=== PATIENT | female | born 1945 ===

== ENCOUNTER 2017-07-20 17:08 | Emergency (ER) | payer OTHER ==
[2017-07-20 17:16] VITALS: PULSE 78; RESP 20
[2017-07-20] MEDS ORDERED: Sodium Chloride 0.9% 500 ML IV ONE ×2 (17:36→17:50)
[2017-07-20] MEDS ORDERED: (Novolin R) Insulin Human Regular 100 units/ml vial IV STA (17:36)
[2017-07-20 17:56] LABS: BASO # 0.1 K/uL (0.0-0.2); BASO % 0.8 % (0.0-2.0); EOS # 0.1 K/uL (0.0-0.7); EOS % 0.7 % (0.0-4.0); HEMOGLOBIN 13.8 g/dL (11.0-16.0); LYMPH # 2.9 K/uL (1.0-4.3); LYMPH % 33.8 % (20.0-40.0); MEAN CELL VOLUME 85.6 fL (81.0-99.0); MEAN CORPUSCULAR HEMOGLOBIN 28.6 pg (27.0-31.0); MEAN CORPUSCULAR HGB CONC 33.4 g/dL (33.0-37.0); MEAN PLATELET VOLUME 10.5 fL (7.2-11.7); MONO # 0.5 K/uL (0.0-0.8); MONO % 5.9 % (0.0-10.0); NEUT # 5.1 K/uL (1.8-7.0); NEUT % 58.8 % (50.0-75.0); RBC 4.84 Mil/uL (3.80-5.20); RED CELL DISTRIBUTION WIDTH 14.9 % (11.5-14.5); WHITE BLOOD COUNT 8.7 K/uL (4.8-10.8)
[2017-07-20] MEDS ORDERED: (Novolin R) Insulin Human Regular 100 units/ml vial IV ONE (17:56)
[2017-07-20 17:58] LABS: SQUAMOUS EPITHIAL 1 /hpf (0-5); URINE BILIRUBIN NEGATIVE (NEGATIVE); URINE BLOOD NEGATIVE (NEGATIVE); URINE CLARITY Clear (Clear); URINE COLOR Straw (YELLOW); URINE GLUCOSE (UA) 3+ mg/dL (Normal); URINE LEUKOCYTE ESTERASE NEG Leu/uL (Negative); URINE PROTEIN NEGATIVE (NEGATIVE); URINE UROBILINOGEN NORMAL mg/dL (0.2-1.0)
[2017-07-20] MEDS ORDERED: (Novolin R) Insulin Human Regular 100 units/ml vial ONE (18:03)
[2017-07-20 18:17] LABS: ALB/GLOB RATIO 1.1 (1.0-2.1); ALBUMIN 3.6 g/dL (3.5-5.0); CALCIUM 9.2 mg/dl (8.6-10.4)
--- NOTE | 2017-07-20 18:17 | RAD ---
PROCEDURE: CHEST RADIOGRAPH, 1 VIEW HISTORY: Diabetic COMPARISON: None available. FINDINGS: LUNGS: Clear. PLEURA: No pneumothorax or pleural fluid seen. CARDIOVASCULAR: No radiographic findings to suggest acute or significant cardiovascular disease. OSSEOUS STRUCTURES: No significant abnormalities. VISUALIZED UPPER ABDOMEN: Normal. OTHER FINDINGS: None. IMPRESSION: No active disease. Concordant results with the preliminary interpretation rendered by the emergency department physician procedure.
[2017-07-20 18:18] LABS: TROPONIN I 0.017 ng/mL (0.00-0.120)
--- NOTE | 2017-07-20 18:39 | C.PDOC ---
History Of Present Illness 72 y/o female w/ PMhx of cardiac stents and diabetes, presents to the ER complaining of elevated blood sugar levels yesterday. Patient states that she used her daughter's fingerstick machine and her fingerstick was over 400 yesterday. Patient has been taking care of herself with highly doubtful medicine complication. Denies having polydipsia.Of note, patient arrived from the 3 days ago in order to live permanently with her daughter. Time Seen by Provider: 07/20/17 17:26 Chief Complaint (Nursing): Headache History Per: Patient History/Exam Limitations: no limitations Onset/Duration Of Symptoms: Days Current Symptoms Are (Timing): Still Present Severity: Moderate Past Medical History Reviewed: Historical Data, Nursing Documentation, Vital Signs Vital Signs: Last Vital Signs Temp 98 F 07/20/17 18:51 Pulse 78 07/20/17 18:51 Resp 20 07/20/17 18:51 BP 104/68 07/20/17 18:51 Pulse Ox 98 07/20/17 19:43 - Medical History PMH: HTN, Hypercholesterolemia Surgical History: Tonsillectomy Family History: States: No Known Family Hx - Social History Hx Alcohol Use: No Hx Substance Use: No - Immunization History Hx Tetanus Toxoid Vaccination: No Hx Influenza Vaccination: No Hx Pneumococcal Vaccination: No Review Of Systems Except As Marked, All Systems Reviewed And Found Negative. Constitutional: Positive for: Other (elevated blood sugar levels). Negative for : Fever, Chills Physical Exam - Physical Exam Appears: Non-toxic, No Acute Distress, Other (obese, elderly female) Skin: Normal Color, Warm, Dry Head: Atraumatic, Normacephalic Eye(s): bilateral: Normal Inspection Nose: Normal Oral Mucosa: Moist Neck: Supple Chest: Symmetrical Cardiovascular: Rhythm Regular Respiratory: Normal Breath Sounds, No Rales, No Rhonchi, No Wheezing Gastrointestinal/Abdominal: Normal Exam, Soft, No Tenderness Extremity: Normal ROM, No Pedal Edema Neurological/Psych: Oriented x3, Normal Speech ED Course And Treatment - Laboratory Results Result Diagrams: 07/20/17 17:48 07/20/17 17:48 Lab Interpretation: Abnormal (A1C 16.4 (VERY HIGH), UA neg.) ECG: Interpreted By Me ECG Rhythm: Sinus Rhythm Interpretation Of ECG: NSR with LBBB Rate From EC O2 Sat by Pulse Oximetry: 98 (RA) Pulse Ox Interpretation: Normal - Radiology CXR: Interpreted by Me CXR Interpretation: Yes: No Acute Disease Progress Note: insulin and ivf, FS improved Reevaluation Time: 18:37 Reassessment Condition: Improved Medical Decision Making Medical Decision Making: very poorly controlled DM, A1C 16.4 c/w "average" glucose >400's Increase Metformin to 1000 mg BID AC and follow-up in Clinic in 2-3 weeks for re -eval Consider changing to insulin sooner than later. Disposition Doctor Will See Patient In The: Office Counseled Patient/Family Regarding: Studies Performed, Diagnosis - Disposition Referrals: [facility] [Outside] [facility] [Outside] Disposition: HOME/ ROUTINE Disposition Time: 18:38 Condition: GOOD Additional Instructions: Sigue Metformina 1000 mg dos veces al cam con comida (desayuno y vice president fixed income) Kaylene marlow azucar dos veces al cam ANTES del desayuno y Barbie Apuntalos en marlow libro Lleva el libro al [facility] (gratis) en 2-3 semanas para ajustar/cambiar jamilah medicamentos. Prescriptions: Blood-Glucose Control, Normal [Meter-Check] 1 each MC BID #1 each Lancets/Blood Glucose Strips [Fora [id number] Strp-Lnct] 1 each MC BID #60 combo..pkg MetFORMIN [glucoPHAGE] 1,000 mg PO BID #60 tab Forms: [employer] (Mauritanian) Print Language: BURKINAN - Clinical Impression Clinical Impression: Hyperglycemia due to type 2 diabetes mellitus - Scribe Statement The provider has reviewed the documentation as recorded by the Sridevi Etienne Provider Attestation: All medical record entries made by the Scribe were at my direction and personally dictated by me. I have reviewed the chart and agree that the record accurately reflects my personal performance of the history, physical exam, medical decision making, and the department course for this patient. I have also personally directed, reviewed, and agree with the discharge instructions and disposition.
[2017-07-20 18:53] VITALS: BP 104/68; TEMP 98
[2017-07-20 19:26] VITALS: O2SAT 98
== END 2017-07-20 18:53 | disposition home or self-care (01) ==
LOC: C.ER 17:08
DX: E11.65 Type 2 diabetes mellitus with hyperglycemia (principal); E78.00 Pure hypercholesterolemia, unspecified; I10 Essential (primary) hypertension
CPT/HCPCS: 71045; 80053; 81001; 82948; 83036; 84484; 85025; 99285; J7040